=== PATIENT | female | born 1950 | race Caucasian/White ===

== ENCOUNTER 2017-02-23 05:56 | Emergency (ER) | payer MEDICARE ==
[~2017-02-23] VITALS: Ht 160 cm; Wt 82.0 kg
[2017-02-23] MEDS ORDERED: SODIUM CHLORIDE FLUSH 10ML SYR IVF ONE (06:00)
[2017-02-23] MEDS ORDERED: PROMETHAZINE 25 MG/ML, 1ML IM ONE (06:00)
[2017-02-23] MEDS ORDERED: SODIUM CHLORIDE 0.9% 1,000ML IVBOLUS ONE (06:00)
[2017-02-23] MEDS ORDERED: PROMETHAZINE 25 MG/ML, 1ML ONE (06:01)
[2017-02-23 06:31] LABS: HEMOGLOBIN 14.5 g/dL (11.7-16.4)
[2017-02-23 06:43] LABS: ASPARTATE AMINO TRANSFERASE 19 U/L (15-37); BLOOD UREA NITROGEN 13 mg/dL (7-18)
[2017-02-23 06:48] LABS: ACETAMINOPHEN < 2 mcg/mL (10-30); IS PT STATUS REG ER OR PRE ER? YES
[2017-02-23] MEDS ORDERED: MECLIZINE CHEWABLE 25 MG TAB ONE (07:30)
[2017-02-23] MEDS ORDERED: DIAZEPAM 5 MG/ML, 2ML IV ONE (07:30)
[2017-02-23] MEDS ORDERED: MECLIZINE CHEWABLE 25 MG TAB PO ONE (07:30)
[2017-02-23] MEDS ORDERED: DIAZEPAM 5 MG/ML, 2ML ONE (07:30)
[2017-02-23 09:19] VITALS: BP 175/85
== END 2017-02-23 09:48 | disposition home or self-care (01) ==
LOC: ED 09:42
DX: R42 Dizziness and giddiness (principal); Z88.6 Allergy status to analgesic agent
CPT/HCPCS: 36415; 70450; 71010; 80053; 80307; 80329; 81003; 82140; 84484; 85025; 85610; 93005; 96372; 96374; 99285; J2550; J3360; J7030; G0480